=== PATIENT | female | born 1985 | race African-American/Black ===

== ENCOUNTER 2018-11-14 22:50 | Emergency (ER) | payer OTHER ==
[2018-11-14] MEDS ORDERED: HYDROcodone/Acetaminophen 5/325 mg Tablet ONE (23:31)
== END 2018-11-14 23:35 | disposition home or self-care (01) ==
LOC: SCSER 22:50
DX: K04.4 Acute apical periodontitis of pulpal origin (principal); I10 Essential (primary) hypertension; F17.210 Nicotine dependence, cigarettes, uncomplicated; Z79.899 Other long term (current) drug therapy
CPT/HCPCS: 99282

== ENCOUNTER 2019-02-27 22:00 | Emergency (ER) | payer OTHER ==
[2019-02-27] MEDS ORDERED: Ondansetron PF 4 MG/2 ML Vial ONE (22:38)
[2019-02-27] MEDS ORDERED: Ketorolac Tromethamine 30 MG/ML VIAL ONE (22:38)
[2019-02-27 22:52] LABS: BHCG - Serum Negative (NEGATIVE); Eosinophils 4 % (0-10); Hemoglobin 11.6 g/dL (12.0-16.0); Lymphocytes 32 % (21-51); MDiff Complete? YES; Mean Corpuscular HGB CONC 33.1 g/dL (32.0-36.0); Mean Corpuscular Volume 87.5 fL (78.0-98.0); Mean Platelet Volume 7.3 fL (7.4-10.4); Monocytes 1 % (0-10); Neutrophil 63 % (42-75); Platelet Count 296 thou/uL (130-400); Pregs Control Background? CLEAR/WHITE (CLR/WHITE); Pregs Control Bar Appear? YES (CONTROL BAR); RBC Distribution Width 13.8 % (11.5-14.5); Red Blood Cell (RBC) Count 4.01 mill/uL (4.20-5.40); White Blood Cell (WBC) Count 14.3 thou/uL (4.8-10.8)
[2019-02-27 22:53] LABS: ALT (SGPT) 16 U/L (8-55); AST (SGOT) 18 U/L (5-34); Albumin 3.7 g/dL (3.5-5.0); Alkaline Phosphatase 59 U/L (40-150); Anion Gap 15 mmol/L (10-20); BUN (Urea Nitrogen) 8 mg/dL (7.0-18.7); Bilirubin, Total 0.9 mg/dL (0.2-1.2); Calc. Creatinine Clearance 0 mL/min (70-130); Calcium 9.2 mg/dL (7.8-10.44); Carbon Dioxide 23 mmol/L (22-29); Chloride 104 mmol/L (98-107); Estimated GFR-MDRD Greater than 90; Globulin 3.5 g/dL (2.4-3.5); Glucose 95 mg/dL (70-105); Lipase 9 U/L (8-78); Potassium 3.2 mmol/L (3.5-5.1); Protein, Total 7.2 g/dL (6.0-8.3); Sodium 139 mmol/L (136-145)
--- NOTE | 2019-02-27 23:27 | CT ---
CT ABDOMEN AND PELVIS WITHOUT CONTRAST: 02/27/19 HISTORY: Left flank and lower quadrant pain. FINDINGS: Absence of oral and IV contrast reduces the sensitivity of the exam particularly for evaluation of so lid organs and bowel. The patient is post cholecystectomy. No calculi is seen in the kidneys, ureters or the urinary bladde r. No hydroureteronephrosis seen on either side. The uterus and ovaries are present. There is a fat containing right paraumbilical hernia. No acute os seous abnormalities are seen. There is fatty infiltration of the liver. IMPRESSION: 1. No CT evidence of urinary tract calculi or obstruction. 2. Fatty liver. 3. Fat containing paraumbilical ventral abdominal wall hernia. POS: ALIZA
[2019-02-27 23:49] LABS: Bilirubin Negative (Negative); Blood, Urine Negative (Negative); Clarity Slightly Cloudy (Clear); Glucose, Urine (Dipstick) Negative (Negative); Leukocyte Negative (Negative); Nitrite Negative (Negative); Protein, Urine (Dipstick) Negative (Neg-Trace); Urobilinogen 0.2 mg/dL (Less than 2)
== END 2019-02-28 00:40 | disposition home or self-care (01) ==
LOC: SCSER 22:00
DX: R10.32 Left lower quadrant pain (principal); R11.2 Nausea with vomiting, unspecified; I10 Essential (primary) hypertension; F41.9 Anxiety disorder, unspecified; F17.210 Nicotine dependence, cigarettes, uncomplicated; Z79.899 Other long term (current) drug therapy
CPT/HCPCS: 74176; 80053; 81003; 83605; 83690; 84703; 85025; 96361; 96374; 96375; J1885; J2405

== ENCOUNTER 2020-02-28 11:25 | Outpatient (CLI) | payer OTHER ==
--- NOTE | 2020-02-28 12:25 | ULT ---
ULTRASOUND PELVIC ULTRASOUND TRANSVAGINAL DOPPLER DUPLEX: DATE: 02/28/2020 HISTORY: 34-year-old female with pelvic pain TECHNIQUE: Transabdominal transducer and endovaginal transducer used to visualize intrapelvic contents with rodgers scale, color-flow, and spectral analysis. FINDINGS: Uterus:11 x 5.5 x 6.5 cm. Endometrial stripe: Indistinct. Approximately 1.2 cm (12 mm). Right ovary:3.1 x 2.4 x 2.8 cm. Left ovary:3.0 x 1.6 x 1.5 cm. Myometrial detail of body and fundus poorly visualized. There is a subtle, approximately 1.6 x 2.4 x 1.8 cm structure which is heterogeneously slightly hypoe choic relative to the rest of the myometrium in the anterior portion of the uterine body, which appears to indent the endometrial stripe. Blood flow in ovaries:Bilaterally demonstrated Ovarian cyst:None Free fluid in the cul-de-sac:None IMPRESSION: Possible 1.8 cm uterine fibroid (leiomyomata).
== END 2020-02-28 11:26 | disposition home or self-care (01) ==
LOC: SCSULT 11:25
PROVIDERS: ATTEND Hospitalist
DX: R10.2 Pelvic and perineal pain (principal)
CPT/HCPCS: 76856